=== PATIENT | male | born 1950 | race Native Hawaiian/Other Pacific Islander ===

== ENCOUNTER 2019-04-10 12:21 | Outpatient (CLI) | payer OTHER ==
[~2019-04-10 12:21] MED LIST: GLYB5TAB65 PO; LISI20TA24 PO; METFORMIN ER1000 MG PO; SIMV20TA2 PO
== END 2019-04-10 21:18 | disposition home or self-care (01) ==
LOC: RAD 12:21
DX: M25.561 Pain in right knee (principal)